=== PATIENT | male | born 1940 | race Two or more races ===

== ENCOUNTER 2018-10-28 13:22 | Outpatient (CLI) | payer MEDICARE, MEDICAID ==
[~2018-10-28 13:22] MED LIST: ASPIR 8181 MG ORAL; AZITHROMYCIN500 MG ORAL; FOLGARD OS TAB1 EACH PO; JALYN 0.5-0.41 EACH PO; LEVOFLOXACIN500 MG ORAL; LOSARTAN-HCTZ1 EAC1 ORAL; NEXIUM40 MG ORAL; PREDNISONE20 MG ORAL; PROAIR HFA8.5 GM INH; SIMCOR 500-201 EACH PO; [UNRECOGNIZED DRUG - OTHER] PO
[2018-10-28] MEDS ORDERED: FLOMAX0.4 MG ORAL (15:26)
[2018-10-28] MEDS ORDERED: VITAMIN D250000 UNI1 ORAL (15:26)
[2018-10-28] MEDS ORDERED: [UNRECOGNIZED DRUG - OTHER] PO (15:26)
--- NOTE | 2018-10-28 20:15 | Consultation ---
DATE OF CONSULTATION: 10/28/2018 GASTROENTEROLOGY CONSULTATION CONSULTING PHYSICIAN: Willem Urrutia M.D. CHIEF COMPLAINT: Abdominal pain and rectal pain. HISTORY OF PRESENT ILLNESS: This is an 78-year-old male with multiple medical problems, which I will dictate in a second, who was referred to us for evaluation of rectal pain. According to him, it is probably going on for about a year. He has been using some cream by Dr. Willem Conway, which is only partially helping him, so he presented to the hospital for evaluation. PAST MEDICAL HISTORY: 1. 2. Hypertension. 3. GERD. 4. History of bronchitis. 5. Diverticulosis. 6. History of colonic polyps. 7. Anemia. 8. BPH. 9. Coronary artery disease. 10. History of gastric submucosal lesion. ALLERGIES: No known drug allergies. MEDICATIONS: Please see medication reconciliation list. SOCIAL HISTORY: The patient denies any tobacco, alcohol, or IV drug abuse. FAMILY HISTORY: Noncontributory. REVIEW OF SYSTEMS: A 10-point review of systems was performed and pertinent positives in HPI. PHYSICAL EXAMINATION: GENERAL: This is a well-developed male, in no acute distress. VITAL SIGNS: Temperature is afebrile. Vital signs are stable. HEENT: Normocephalic and atraumatic. Sclerae anicteric. NECK: Supple. No evidence of obvious lymphadenopathy. CARDIOVASCULAR: Regular rhythm. Plus S1 and S2. No obvious murmur. LUNGS: Clear to auscultation bilaterally. ABDOMEN: Positive bowel sounds. Soft and nontender. No rebound. No guarding. No peritoneal sign. EXTREMITIES: No cyanosis. No clubbing. No edema. RECTAL: The patient had two external hemorrhoids, which were tender, but does not seem to be engorged or thrombosed. ASSESSMENT: This is an 78-year-old male with rectal pain, most probably secondary to external hemorrhoids. PLAN: I educated the patient about constipation. The patient needs to be on MiraLAX daily. He stated he has it at home and is going to try it. He will continue the Anusol cream twice a day. Sitz baths was instructed to be done on three times a day for 20 minutes each time. The patient to come back next week for followup. On reexamining at that time, if no improvement, we will consider referral to Surgery. I want to thank Dr. Willem Conway for this kind referral. Willem Urrutia M.D. DR: BALDO JOB#: [id number] CC: Willem Conway M.D.
== END 2018-10-28 15:51 | disposition home or self-care (01) ==
LOC: PAN 13:22
DX: R10.9 Unspecified abdominal pain (principal); I10 Essential (primary) hypertension; K21.9 Gastro-esophageal reflux disease without esophagitis; K57.90 Diverticulosis of intestine, part unspecified, without perforation or abscess without bleeding; Z86.010 Personal history of colon polyps; I25.10 Atherosclerotic heart disease of native coronary artery without angina pectoris; K64.4 Residual hemorrhoidal skin tags; K62.89 Other specified diseases of anus and rectum; K59.00 Constipation, unspecified

== ENCOUNTER 2020-09-29 13:00 | Outpatient (CLI) | payer MEDICARE, MEDICAID ==
[~2020-09-29 13:00] MED LIST changes: +FLOMAX0.4 MG ORAL; +VITAMIN D250000 UNI1 ORAL; +[UNRECOGNIZED DRUG - OTHER] PO
[2020-09-29 13:05] VITALS: BP 135/68
[2020-09-30] MEDS ORDERED: CANAASA1000 MG RECTAL (07:44)
[2020-09-30] MEDS ORDERED: BENICAR HCT 401 EAC1 ORAL (07:44)
[2020-09-30] MEDS ORDERED: MESALAMINE DR400 MG PO (07:44)
[2020-09-30] MEDS ORDERED: ATORVASTATIN CA20 MG ORAL (07:44)
== END 2020-09-29 15:00 | disposition home or self-care (01) ==
LOC: PAN 13:00
DX: R10.9 Unspecified abdominal pain (principal); R19.7 Diarrhea, unspecified
CPT/HCPCS: 99212